=== PATIENT | female | born 1970 | race African-American/Black ===

== ENCOUNTER 2021-10-04 01:38 | Emergency (ER) | payer MEDICAID ==
[~2021-10-04] VITALS: Ht 167.6 cm; Wt 64.0 kg
[2021-10-04 01:52] VITALS: BP 123/59
[2021-10-04] MEDS ORDERED: KETOROLAC 60MG/2ML VIAL IM ONE (02:15)
[2021-10-04] MEDS ORDERED: NAPR-681 MT (03:16)
== END 2021-10-04 04:06 | disposition home or self-care (01) ==
LOC: ER 02:09
DX: M25.562 Pain in left knee (principal)
CPT/HCPCS: 73562; 96372; 99283; J1885

== ENCOUNTER 2022-04-13 03:34 | Emergency (ER) | payer MEDICAID ==
[~2022-04-13 03:34] MED LIST: NAPR-681 MT
== END 2022-04-13 06:09 | disposition left against medical advice (07) ==
LOC: ER 03:34
DX: Z53.21 Procedure and treatment not carried out due to patient leaving prior to being seen by health care provider (principal)